=== PATIENT | female | born 1995 ===

== ENCOUNTER 2017-03-23 01:29 | Emergency (ER) | payer SELFPAY ==
[2017-03-23 01:43] VITALS: RESP 20; TEMP 98.4; O2SAT 100
[2017-03-23] MEDS ORDERED: Sodium Chloride 0.9% 1,000 ML IV ONE (02:04)
[2017-03-23] MEDS ORDERED: Sodium Chloride 0.9% 1,000 ML ONE (02:12)
[2017-03-23 02:15] LABS: RBC URINE 1 /hpf (0-3); URINE BILIRUBIN NEGATIVE (NEGATIVE); URINE BLOOD NEGATIVE (NEGATIVE); URINE COLOR Yellow (YELLOW); URINE GLUCOSE (UA) NORMAL (Normal); URINE KETONE NEGATIVE (NEGATIVE); URINE LEUKOCYTE ESTERASE NEG Leu/uL (Negative); URINE PROTEIN NEGATIVE (NEGATIVE); URINE UROBILINOGEN NORMAL mg/dL (0.2-1.0); WBC URINE < 1 /hpf (0-5)
[2017-03-23 02:17] LABS: BASO % 0.8 % (0.0-2.0); EOS # 0.2 K/uL (0.0-0.7); EOS % 2.6 % (0.0-4.0); HEMATOCRIT 35.5 % (34.0-47.0); LYMPH % 33.1 % (20.0-40.0); MEAN CELL VOLUME 86.2 fL (81.0-99.0); MEAN CORPUSCULAR HEMOGLOBIN 28.2 pg (27.0-31.0); MEAN CORPUSCULAR HGB CONC 32.7 g/dL (33.0-37.0); MEAN PLATELET VOLUME 9.9 fL (7.2-11.7); MONO # 0.6 K/uL (0.0-0.8); NRBC % 0.1 % (0.0-2.0); RED CELL DISTRIBUTION WIDTH 14.6 % (11.5-14.5)
[2017-03-23 02:28] LABS: CHLORIDE 102 mmol/L (98-107); POTASSIUM 3.8 mmol/L (3.6-5.2); SODIUM 137 mmol/L (132-148)
[2017-03-23 02:30] LABS: GFR AFRICAN-AMERICAN > 60
[2017-03-23 02:31] LABS: BLOOD UREA NITROGEN 15 mg/dL (7-17); CALCIUM 8.5 mg/dl (8.6-10.4); CARBON DIOXIDE 26 mmol/L (22-30); GLUCOSE,RANDOM 111 mg/dL (65-105)
--- NOTE | 2017-03-23 02:55 | C.PDOC ---
History Of Present Illness 21 yr old female presents to the ER with complaints of generalized weakness and light headedness for the past several days. Patient states she has been dieting recently and has cut down her food intake by 50%. Patient denies LOC, vision changes, nausea, vomiting, abdominal pain, weakness or numbness. GEN WEAKNESS, LIGHTHEADEDNESS X SEV DAYS. NO NV, PAIN. PS HAS BEEN DIETING, CUTTING INTAKE 50%. NO OTHER ASSOC SX EXAM NEG Time Seen by Provider: 03/23/17 01:55 Chief Complaint (Nursing): Headache History Per: Patient History/Exam Limitations: no limitations Onset/Duration Of Symptoms: Days (Several days) Past Medical History Reviewed: Historical Data, Nursing Documentation, Vital Signs Vital Signs: Last Vital Signs Temp 98.4 F 03/23/17 03:09 Pulse 69 03/23/17 03:09 Resp 20 03/23/17 03:09 BP 116/72 03/23/17 03:09 Pulse Ox 100 03/25/17 11:01 Family History: States: No Known Family Hx - Social History Hx Alcohol Use: No Hx Substance Use: No - Immunization History Hx Tetanus Toxoid Vaccination: No Hx Influenza Vaccination: No Hx Pneumococcal Vaccination: No Review Of Systems Review Of Systems: ROS cannot be obtained secondary to pt's inabilty to answer questions. Constitutional: Positive for: Other ((+) General weakness) Eyes: Negative for: Vision Change Cardiovascular: Positive for: Light Headedness Gastrointestinal: Negative for: Nausea, Vomiting, Abdominal Pain Neurological: Negative for: Weakness, Numbness Physical Exam - Physical Exam Appears: Well, Non-toxic, No Acute Distress Skin: Warm, Dry, No Rash Head: Atraumatic, Normacephalic Oral Mucosa: Moist Chest: Symmetrical, No Tenderness Cardiovascular: Rhythm Regular, No Murmur Respiratory: Normal Breath Sounds, No Rales, No Rhonchi, No Stridor, No Wheezing Gastrointestinal/Abdominal: Normal Exam, Soft, No Tenderness, No Guarding, No Rebound Extremity: Normal ROM, No Swelling Neurological/Psych: Oriented x3, Normal Speech, Normal Motor, Normal Sensation ED Course And Treatment - Laboratory Results Result Diagrams: 03/23/17 02:12 03/23/17 02:12 O2 Sat by Pulse Oximetry: 100 Reevaluation Time: 02:54 Reassessment Condition: Improved (116/70) Medical Decision Making Medical Decision Making: PLAN: * CBC * HCG * Urinalysis * Sodium Chloride IV Disposition Counseled Patient/Family Regarding: Studies Performed, Diagnosis, Need For Followup - Disposition Referrals: [facility] [Outside] [facility] [Outside] Disposition: HOME/ ROUTINE Disposition Time: 15:00 Condition: GOOD Instructions: Dehydration (ED), Weight Management (ED) Print Language: HUNGARIAN - Clinical Impression Clinical Impression: Dizziness - Scribe Statement The provider has reviewed the documentation as recorded by the Ella Daniel Provider Attestation: All medical record entries made by the Ella were at my direction and personally dictated by me. I have reviewed the chart and agree that the record accurately reflects my personal performance of the history, physical exam, medical decision making, and the department course for this patient. I have also personally directed, reviewed, and agree with the discharge instructions and disposition.
[2017-03-23 03:09] VITALS: BP 116/72; PULSE 69
== END 2017-03-23 03:13 | disposition home or self-care (01) ==
LOC: C.ER 01:29
DX: R42 Dizziness and giddiness (principal)